=== PATIENT | male | born 1970 | race Caucasian/White ===

== ENCOUNTER 2019-12-09 06:16 | Emergency (ER) | payer OTHER ==
[~2019-12-09] VITALS: Ht 165.1 cm; Wt 99.7 kg
[2019-12-09 07:08] LABS: CHLORIDE 101 mEq/L (98-107)
[2019-12-09 07:09] LABS: BASOPHILS % 0.2 % (0.0-2.0); EOSINOPHILS % 0.7 % (0.0-5.0); HEMATOCRIT. 58.9 % (42.0-52.0); HEMOGLOBIN. 19.7 g/dL (14.0-18.0); MEAN CORPUSCULAR HEMOGLOBIN 29.5 pg (28.0-32.0); MEAN CORPUSCULAR VOLUME 88.3 fL (80.0-94.0); MEAN PLATELET VOLUME 8.4 fl (7.4-10.4); MONOCYTES % 7.9 % (2.0-8.0); NEUTROPHILS % 77.2 % (40.0-76.0); PLATELET 224 x1000/uL (130-400); RED BLOOD CELL COUNT 6.67 mill/uL (4.7-6.1); RED CELL DISTRIBUTION WIDTH 14.2 % (11.6-14.6)
[2019-12-09 07:37] LABS: PROTHROMBIN TIME 10.9 sec (9.6-11.0)
[2019-12-09] MEDS ORDERED: SODIUM CHLORIDE 0.9% 1,000 ML IV ONE (07:51)
[2019-12-09] MEDS ORDERED: MORPHINE SULFATE 4 MG/ML CPJ (NOT FOR IM USE) IV STA (07:51)
[2019-12-09] MEDS ORDERED: ONDANSETRON HCL 4MG/2ML INJ IV STA (07:51)
[2019-12-09 09:46] VITALS: BP 160/98
== END 2019-12-09 09:59 | disposition home or self-care (01) ==
LOC: ER 06:16
DX: R10.9 Unspecified abdominal pain (principal); Z20.828 Contact with and (suspected) exposure to other viral communicable diseases; R11.2 Nausea with vomiting, unspecified; R19.7 Diarrhea, unspecified
CPT/HCPCS: 36415; 80053; 83690; 85025; 85610; 93005; 96361; 96374; 96375; 99284; C9803; J2270; J2405; J7030; U0003

== ENCOUNTER 2023-05-21 11:52 | Emergency (ER) | payer MEDICAID, OTHER ==
[~2023-05-21] VITALS: Ht 172.7 cm; Wt 91.0 kg
[2023-05-21 11:59] VITALS: O2SAT 98
[2023-05-21] MEDS ORDERED: IBUPROFEN 400MG TABLET PO ONE (12:45)
[2023-05-21] MEDS ORDERED: ACETAMINOPHEN 325MG TABLET PO ONE (12:45)
[2023-05-21] MEDS ORDERED: CEFTRIAXONE 1GM PREMIX 50 ML IV ONE (12:45)
[2023-05-21] MEDS ORDERED: VANCOMYCIN 1G PREMIX 200 ML IV SCH (12:45)
[2023-05-21 13:20] LABS: BASOPHILS % 0.7 % (0.0-2.0); EOSINOPHILS % 1.4 % (0.0-5.0); HEMATOCRIT. 48.4 % (42.0-52.0); HEMOGLOBIN. 16.2 g/dL (14.0-18.0); LYMPHOCYTES % 18.6 % (20.0-50.0); MEAN CORPUSCULAR HEMOGLOBIN 29.9 pg (28.0-32.0); MEAN CORPUSCULAR HGB CONC 33.4 g/dL (31.0-37.0); MEAN CORPUSCULAR VOLUME 89.4 fL (80.0-94.0); MEAN PLATELET VOLUME 7.7 fl (7.4-10.4); NEUTROPHILS % 70.3 % (40.0-76.0); PLATELET 207 x1000/uL (130-400); RED BLOOD CELL COUNT 5.42 mill/uL (4.7-6.1); RED CELL DISTRIBUTION WIDTH 14.5 % (11.6-14.6); WHITE BLOOD COUNT 8.6 x1000/uL (4.5-11.0)
[2023-05-21 13:23] LABS: ALANINE AMINOTRANSFERASE 44 IU/L (10-49); ASPARTATE AMINOTRANSFERASE 25 IU/L (<34); BILIRUBIN TOTAL 0.6 mg/dL (0.1-1.0); CALCIUM 8.9 mg/dL (8.7-10.4); CARBON DIOXIDE 26 mEq/L (21-32); CHLORIDE 105 mEq/L (98-107); CREATININE 0.9 mg/dL (0.6-1.3); GLUCOSE 104 mg/dL (70-105); POTASSIUM 4.1 mEq/L (3.5-5.1); PROTEIN TOTAL 7.1 g/dL (6.0-8.3); PROTHROMBIN TIME 10.4 sec (9.6-11.0); SODIUM 137 mEq/L (136-145); UREA NITROGEN BLOOD 10 mg/dL (9-23)
[2023-05-21] MEDS ORDERED: ACETAMINOPHEN 325MG TABLET PO NR (17:00)
[2023-05-21] MEDS ORDERED: CEFTRIAXONE 1GM PREMIX 50 ML IV NR (17:00)
[2023-05-21] MEDS ORDERED: IBUPROFEN 400MG TABLET PO NR (17:00)
[2023-05-21] MEDS ORDERED: SULF1TAB48 MT (18:15)
[2023-05-21 20:10] VITALS: BP 112/67; PULSE 79; RESP 16; TEMP 98.2
== END 2023-05-21 20:08 | disposition home or self-care (01) ==
LOC: ER 11:52 → EDBEDREQ 17:40 → EDBEDREQTM 17:40 → ER 20:08
DX: L03.116 Cellulitis of left lower limb (principal)
CPT/HCPCS: 99291; 96365; 76881; 96367; 80053; 85025; 85610; 86850; 86900; 86901; 36415; 76604; J0696; J3370

== ENCOUNTER 2024-11-03 14:32 | Emergency (ER) | payer OTHER ==
[~2024-11-03] VITALS: Ht 165.1 cm; Wt 126.0 kg
[~2024-11-03 14:32] MED LIST: SULF1TAB48 MT
[2024-11-03 14:42] VITALS: O2SAT 99
[2024-11-03 15:57] LABS: BASOPHILS % 0.2 % (0.0-2.0); EOSINOPHILS % 0.5 % (0.0-5.0); HEMATOCRIT. 49.2 % (42.0-52.0); LYMPHOCYTES % 12.1 % (20.0-50.0); MEAN CORPUSCULAR HEMOGLOBIN 29.5 pg (28.0-32.0); MEAN CORPUSCULAR HGB CONC 34.5 g/dL (31.0-37.0); MEAN CORPUSCULAR VOLUME 85.4 fL (80.0-94.0); MEAN PLATELET VOLUME 7.7 fl (7.4-10.4); MONOCYTES % 12.3 % (2.0-8.0); NEUTROPHILS % 74.9 % (40.0-76.0); PLATELET 231 x1000/uL (130-400); RED BLOOD CELL COUNT 5.75 mill/uL (4.7-6.1); WHITE BLOOD COUNT 7.6 x1000/uL (4.5-11.0)
[2024-11-03 16:10] LABS: CARBON DIOXIDE 28 mEq/L (21-32); CHLORIDE 103 mEq/L (98-107); POTASSIUM 3.4 mEq/L (3.5-5.1); SODIUM 140 mEq/L (136-145)
[2024-11-03 16:11] LABS: CALCIUM 8.7 mg/dL (8.7-10.4)
[2024-11-03 16:15] LABS: CREATININE 1.1 mg/dL (0.6-1.3); GLUCOSE 113 mg/dL (70-105)
[2024-11-03 16:16] LABS: TROPONIN I HIGH SENSITIVITY 6 ng/L (3.0-53); UREA NITROGEN BLOOD 8 mg/dL (9-23)
[2024-11-03 16:17] LABS: ALANINE AMINOTRANSFERASE 38 IU/L (10-49); ALBUMIN 4.2 g/dL (3.2-4.8); ASPARTATE AMINOTRANSFERASE 24 IU/L (<34)
[2024-11-03 16:18] LABS: BILIRUBIN DIRECT 0.5 mg/dL (<=3.0); BILIRUBIN TOTAL 1.3 mg/dL (0.1-1.0); PROTEIN TOTAL 6.9 g/dL (6.0-8.3)
[2024-11-03] MEDS: ONDANSETRON HCL 4MG/2ML INJ IV SCH (16:27)
[2024-11-03] MEDS: SODIUM CHLORIDE 0.9% 1,000 ML IV ONE (16:27)
[2024-11-03] MEDS: FAMOTIDINE 20MG/2ML VIAL IV SCH (16:34)
[2024-11-03] MEDS: MORPHINE SULFATE 4 MG/ML INJ (FOR IV/IM USE) IV ONE (18:07)
[2024-11-03 19:18] VITALS: BP 134/86; PULSE 90; RESP 12; TEMP 37; O2SAT 100
== END 2024-11-03 19:37 | disposition short-term general hospital (02) ==
LOC: ER 14:32
DX: K80.20 Calculus of gallbladder without cholecystitis without obstruction (principal); R10.9 Unspecified abdominal pain; E66.01 Morbid (severe) obesity due to excess calories; Z88.0 Allergy status to penicillin; Z98.890 Other specified postprocedural states; Z68.45 Body mass index [BMI] 70 or greater, adult
CPT/HCPCS: 99285; 74176; 96374; 76705; 96361; 96375; 80076; 80048; 83690; 85025; 84484; 36415; J1308; J2405; J2270